=== PATIENT | female | born 1990 | race Caucasian/White ===

== ENCOUNTER → 2016-09-17 | Outpatient (CLI) | payer OTHER | LOC: SLEEP 21:30 | DX: G47.33 Obstructive sleep apnea (adult) (pediatric) (principal) | CPT/HCPCS: 95810 ==

== ENCOUNTER 2016-12-14 19:32 | Emergency (ER) | payer SELFPAY | END 2016-12-14 23:29 | disposition home or self-care (01) | LOC: ER1 19:32 | DX: S39.012A Strain of muscle, fascia and tendon of lower back, initial encounter (principal); M54.40 Lumbago with sciatica, unspecified side; I10 Essential (primary) hypertension; E11.9 Type 2 diabetes mellitus without complications; E78.00 Pure hypercholesterolemia, unspecified; X58.XXXA Exposure to other specified factors, initial encounter | CPT/HCPCS: 72100; 84703; 99283 ==

== ENCOUNTER 2021-06-20 07:14 | Emergency (ER) | payer SELFPAY ==
[~2021-06-20 07:14] MED LIST: BENTYL 20MG TAB20 MG PO; FLORASTOR250 MG PO; MECLIZINE HCL25 MG PO; ZANTAC150 MG PO; ZOFRAN ODT 4 MG4 MG PO; ZOFRAN ODT 4 MG4 MG SL
[2021-06-20] MEDS ORDERED: CYCLOBENZAPRINE10 MG PO (08:12)
[2021-06-20] MEDS ORDERED: HYDROCODON-ACE1 EAC4 PO (08:55)
== END 2021-06-20 08:54 | disposition home or self-care (01) ==
LOC: ER1 07:14
DX: M54.42 Lumbago with sciatica, left side (principal); E11.9 Type 2 diabetes mellitus without complications; I10 Essential (primary) hypertension
CPT/HCPCS: 96372; 96374; 99283; J1885; J3360

== ENCOUNTER 2021-06-22 14:26 | Emergency (ER) | payer OTHER ==
[~2021-06-22 14:26] MED LIST changes: +CYCLOBENZAPRINE10 MG PO; +HYDROCODON-ACE1 EAC4 PO
[2021-06-22] MEDS ORDERED: PERCOCET 5/325 T1 EA PO (20:12)
== END 2021-06-22 21:00 | disposition home or self-care (01) ==
LOC: ER1 14:26
DX: M48.8X6 Other specified spondylopathies, lumbar region (principal); I10 Essential (primary) hypertension; E11.9 Type 2 diabetes mellitus without complications
CPT/HCPCS: 72131; 84703; 96372; 99284; J1100; J1885; J2270; J2550

== ENCOUNTER 2021-08-03 08:11 | Emergency (ER) | payer OTHER ==
[~2021-08-03 08:11] MED LIST changes: +PERCOCET 5/325 T1 EA PO
[2021-08-03 09:35] LABS: HEMOGLOBIN 13.7 gm/dl (12.3-15.3); RED BLOOD COUNT 5.04 M/UL (4.00-5.10)
[2021-08-03 10:09] LABS: BUN/CREATININE RATIO 15 (0-10)
[2021-08-03] MEDS ORDERED: BENZONATATE100 MG PO (10:16)
== END 2021-08-03 10:45 | disposition home or self-care (01) ==
LOC: ER1 08:11
PROVIDERS: Nurse Practitioner
DX: U07.1 COVID-19 (principal); E11.9 Type 2 diabetes mellitus without complications; I10 Essential (primary) hypertension
CPT/HCPCS: 0240U; 36600; 71045; 80048; 81001; 82550; 82553; 82803; 83874; 84484; 85025; 85652; 86140; 93005; 96374; 96375; 99284; J1100; J1885

== ENCOUNTER 2021-08-06 00:02 | Emergency (ER) | payer OTHER ==
[~2021-08-06 00:02] MED LIST changes: +BENZONATATE100 MG PO
[2021-08-06 00:40] LABS: HEMOGLOBIN 14.5 gm/dl (12.3-15.3); RED BLOOD COUNT 5.37 M/UL (4.00-5.10); WHITE BLOOD COUNT 7.5 K/UL (4.5-11.0)
[2021-08-06 01:06] LABS: BUN/CREATININE RATIO 29 (0-10)
[2021-08-06] MEDS ORDERED: BENZONATATE100 MG PO (02:25)
[2021-08-06] MEDS ORDERED: PROVENTIL HFA6.7 GM INH (02:25)
[2021-08-06] MEDS ORDERED: ZOFRAN ODT 4 MG4 MG PO (02:25)
== END 2021-08-06 03:31 | disposition home or self-care (01) ==
LOC: ER1 00:02
PROVIDERS: Physician Assistant
DX: U07.1 COVID-19 (principal); E11.9 Type 2 diabetes mellitus without complications; Z79.84 Long term (current) use of oral hypoglycemic drugs; I10 Essential (primary) hypertension
CPT/HCPCS: 71045; 80053; 82550; 82553; 83874; 83880; 84439; 84443; 84484; 84703; 85025; 85379; 85610; 93005; 96374; 99284; J2405